=== PATIENT | female | born 1960 | race African-American/Black ===

== ENCOUNTER 2021-01-19 21:43 | Inpatient (IN) | payer OTHER, MEDICARE ==
[~2021-01-19] VITALS: Ht 162.6 cm; Wt 119.5 kg
[2021-01-19 23:05] LABS: BASOPHIL 0.2 % (0-2); EOSINOPHIL 0 % (0-5); HCT 41.9 % (37.0-47.0); HGB 13.7 g/dl (12.5-16.0); LYMPHOCYTE 24.3 % (15-48); MCH 28.4 pg (25.0-31.0); MCHC 32.7 g/dL (32.0-36.0); MCV 86.9 fL (78.0-100.0); MONOCYTE 7.4 % (0-12); MPV 10.6 fL (6.0-9.5); NEUTROPHIL 67.8 % (41-80); NRBC 0; PLT 147 K/uL (150-400); RBC 4.82 M/uL (4.20-5.40); RDW 14.3 % (11.5-14.0); WBC 6.1 K/uL (4.0-10.5)
[2021-01-19 23:15] LABS: ALBUMIN 3.2 g/dL (3.4-5.0); BILIRUBIN - TOTAL 0.4 mg/dL (0.2-1.0); BUN/CREAT RATIO (CALC) 14.6 RATIO; CREATININE 2.06 mg/dL (0.51-0.95); POTASSIUM 3.3 mmol/L (3.5-5.1); TOTAL PROTEIN 8.2 g/dL (6.4-8.2)
[2021-01-20 00:53] LABS: PTT 68.9 SECONDS (24.4-34.7)
[2021-01-20 01:04] LABS: INR 5.39 (0.9-1.2)
[2021-01-20] MEDS ORDERED: METFORMIN HCL1000 MG PO (02:31)
[2021-01-20] MEDS ORDERED: TRAMADOL HCL50 MG PO (02:32)
[2021-01-20] MEDS ORDERED: TRULICITY3 MG/0.5 M SC (02:34)
[2021-01-20] MEDS ORDERED: TRIAMTERENE-HC1 EAC3 PO (02:35)
[2021-01-20] MEDS ORDERED: JANUVIA 100MG100 MG PO (02:37)
[2021-01-20] MEDS ORDERED: BISOPROLOL FUMA10 MG PO (02:38)
[2021-01-20] MEDS ORDERED: GLIPIZIDE10 MG PO (02:39)
[2021-01-20] MEDS ORDERED: CYCLOBENZAPRINE10 MG PO (02:41)
[2021-01-20] MEDS ORDERED: WARFARIN SODIUM10 MG PO (02:43)
[2021-01-20] MEDS ORDERED: MELOXICAM7.5 MG PO (02:44)
[2021-01-20] MEDS ORDERED: ROSUVASTATIN CA40 MG PO (02:44)
[2021-01-20 06:47] LABS: BASOPHIL 0 % (0-2); EOSINOPHIL 0 % (0-5); HCT 38.9 % (37.0-47.0); HGB 12.7 g/dl (12.5-16.0); LYMPHOCYTE 23.3 % (15-48); MCH 28.7 pg (25.0-31.0); MCHC 32.6 g/dL (32.0-36.0); MCV 87.8 fL (78.0-100.0); MONOCYTE 5.8 % (0-12); MPV 10.6 fL (6.0-9.5); NEUTROPHIL 70.7 % (41-80); NRBC 0; PLT 130 K/uL (150-400); RBC 4.43 M/uL (4.20-5.40); RDW 14.6 % (11.5-14.0)
[2021-01-20 07:01] LABS: INR 4.6 (0.9-1.2); PROTHROMBIN TIME 42.3 SECONDS (11.8-13.4)
[2021-01-20 08:46] LABS: ALBUMIN 2.7 g/dL (3.4-5.0); BILIRUBIN - TOTAL 0.4 mg/dL (0.2-1.0); C-REACTIVE PROTEIN 9.4 mg/dL (<=0.90); CREATININE 1.82 mg/dL (0.51-0.95); GLOBULIN (CALCULATION) 4.8 g/dL; MAGNESIUM 2.4 mg/dL (1.8-2.4); PHOSPHORUS 4.3 mg/dL (2.6-4.7); POTASSIUM 3.8 mmol/L (3.5-5.1); TOTAL PROTEIN 7.5 g/dL (6.4-8.2)
[2021-01-20 10:32] LABS: BILIRUBIN NEGATIVE (NEGATIVE); BLOOD TRACE-INTACT Ery/uL (NEGATIVE); CLARITY CLEAR (CLEAR); COLOR YELLOW (YELLOW); GLUCOSE (U) TRACE mg/dL (NORMAL); LEUKOCYTES NEGATIVE Leu/uL (NEGATIVE); NITRITE NEGATIVE (NEGATIVE); PROTEIN 1+ mg/dL (NEGATIVE); UROBILINOGEN 0.2 mg/dL (0.2-1.0); pH 5.5 (5.0-9.0)
[2021-01-20 11:14] LABS: URINARY RBC RARE
[2021-01-20 11:15] LABS: AMORPHOUS URATES CRYSTALS TRACE; BACTERIA TRACE
[2021-01-21 06:22] LABS: BASOPHIL 0 % (0-2); EOSINOPHIL 0 % (0-5); HCT 37.4 % (37.0-47.0); HGB 12.2 g/dl (12.5-16.0); MCH 28.6 pg (25.0-31.0); MCHC 32.6 g/dL (32.0-36.0); MCV 87.6 fL (78.0-100.0); MONOCYTE 6.2 % (0-12); MPV 10.8 fL (6.0-9.5); NEUTROPHIL 73.1 % (41-80); NRBC 0; PLT 160 K/uL (150-400); RBC 4.27 M/uL (4.20-5.40); RDW 14.6 % (11.5-14.0)
[2021-01-21 06:28] LABS: LYMPHOCYTE 20.2 % (15-48)
[2021-01-21 07:09] LABS: BUN/CREAT RATIO (CALC) 24.6 RATIO; CREATININE 1.38 mg/dL (0.51-0.95); POTASSIUM 4.2 mmol/L (3.5-5.1)
[2021-01-21 07:12] LABS: INR 6.7 (0.9-1.2)
[2021-01-22 05:48] LABS: BASOPHIL 0.1 % (0-2); EOSINOPHIL 0 % (0-5); HCT 38.8 % (37.0-47.0); HGB 12.2 g/dl (12.5-16.0); LYMPHOCYTE 18.6 % (15-48); MCH 27.9 pg (25.0-31.0); MCHC 31.4 g/dL (32.0-36.0); MCV 88.8 fL (78.0-100.0); MONOCYTE 6.8 % (0-12); MPV 10.3 fL (6.0-9.5); NEUTROPHIL 73.7 % (41-80); NRBC 0; PLT 169 K/uL (150-400); RBC 4.37 M/uL (4.20-5.40); RDW 15.3 % (11.5-14.0)
[2021-01-22 05:51] LABS: WBC 8.8 K/uL (4.0-10.5)
[2021-01-22 06:11] LABS: PROTHROMBIN TIME 66.6 SECONDS (11.8-13.4)
[2021-01-22 06:26] LABS: INR 8.15 (0.9-1.2)
[2021-01-22 06:59] LABS: ALBUMIN 2.3 g/dL (3.4-5.0); BILIRUBIN - TOTAL 0.3 mg/dL (0.2-1.0); BUN/CREAT RATIO (CALC) 28.3 RATIO; CREATININE 1.2 mg/dL (0.51-0.95); GLOBULIN (CALCULATION) 4.5 g/dL; POTASSIUM 4.7 mmol/L (3.5-5.1); TOTAL PROTEIN 6.8 g/dL (6.4-8.2)
[2021-01-23 06:20] LABS: BASOPHIL 0.1 % (0-2); EOSINOPHIL 0 % (0-5); HGB 13.5 g/dl (12.5-16.0); LYMPHOCYTE 33.5 % (15-48); MCH 28.4 pg (25.0-31.0); MCHC 32.1 g/dL (32.0-36.0); MCV 88.4 fL (78.0-100.0); MPV 10.5 fL (6.0-9.5); NEUTROPHIL 58.8 % (41-80); NRBC 0; PLT 195 K/uL (150-400); RBC 4.75 M/uL (4.20-5.40); RDW 15.2 % (11.5-14.0); WBC 8.3 K/uL (4.0-10.5)
[2021-01-23 06:38] LABS: PROTHROMBIN TIME 57.1 SECONDS (11.8-13.4)
[2021-01-23 06:44] LABS: BUN/CREAT RATIO (CALC) 27.3 RATIO; CREATININE 1.1 mg/dL (0.51-0.95)
[2021-01-23 06:46] LABS: INR 6.71 (0.9-1.2)
--- NOTE | 2021-01-23 10:21 | NUR ---
01/23/21 A referral was made to [facility] for 02 at 2 L per patient choice in anticipation of discharge on 01/24.
[2021-01-24 06:34] LABS: BASOPHIL 0 % (0-2); EOSINOPHIL 0 % (0-5); HGB 12.6 g/dl (12.5-16.0); MCH 28.4 pg (25.0-31.0); MCHC 32.3 g/dL (32.0-36.0); MCV 87.8 fL (78.0-100.0); MONOCYTE 12.5 % (0-12); MPV 10.6 fL (6.0-9.5); NRBC 0; PLT 196 K/uL (150-400); RBC 4.44 M/uL (4.20-5.40); RDW 15.2 % (11.5-14.0)
[2021-01-24 06:39] LABS: PROTHROMBIN TIME 62.5 SECONDS (11.8-13.4)
[2021-01-24 06:47] LABS: INR 7.52 (0.9-1.2)
[2021-01-24 07:12] LABS: BUN/CREAT RATIO (CALC) 29.7 RATIO; CREATININE 0.91 mg/dL (0.51-0.95); POTASSIUM 3.9 mmol/L (3.5-5.1)
[2021-01-24] MEDS ORDERED: VENTOLIN HFA IN18 GM INH (12:53)
[2021-01-24] MEDS ORDERED: DEXAMETHASONE6 MG PO (12:53)
== END 2021-01-24 17:09 | disposition home or self-care (01) | DRG 177 ==
LOC: FER 21:43 → FMS 01-20 00:55
PROVIDERS: Emergency Medicine Emergency Medical Services; Internal Medicine; Nurse Practitioner; ADMIT Allergy & Immunology Allergy
PROC: 8E0ZXY6 Isolation (ICD-10-PCS; principal; 2021-01-20)
PROC: XW033E5 Introduction of Remdesivir Anti-infective into Peripheral Vein, Percutaneous Approach, New Technology Group 5 (ICD-10-PCS; 2021-01-20)
DX: U07.1 COVID-19 (principal); J12.82 Pneumonia due to coronavirus disease 2019; J96.01 Acute respiratory failure with hypoxia; N17.9 Acute kidney failure, unspecified; E11.65 Type 2 diabetes mellitus with hyperglycemia; I10 Essential (primary) hypertension; K21.9 Gastro-esophageal reflux disease without esophagitis; E78.5 Hyperlipidemia, unspecified; G89.29 Other chronic pain; Z79.84 Long term (current) use of oral hypoglycemic drugs; Z79.4 Long term (current) use of insulin; Z88.5 Allergy status to narcotic agent; Z86.718 Personal history of other venous thrombosis and embolism; Z90.49 Acquired absence of other specified parts of digestive tract; Z98.890 Other specified postprocedural states; Z83.3 Family history of diabetes mellitus; Z82.49 Family history of ischemic heart disease and other diseases of the circulatory system
CPT/HCPCS: 36415; 36600; 71045; 71250; 80048; 80053; 81001; 82728; 82803; 82962; 83036; 83605; 83615; 83735; 84100; 84145; 84484; 85025; 85379; 85610; 85730; 86140; 93005; 94010; 94640; 94664; 94760; 94762; C9399; J1100; J1815; J1885; J2405; J7030; J7050; U0002